=== PATIENT | female | born 1970 | race Caucasian/White ===

== ENCOUNTER → 2016-06-18 | Outpatient (CLI) | payer OTHER ==
--- NOTE | 2016-06-18 17:34 | MR ---
EXAMINATION TYPE: MR lumbar spine wo con DATE OF EXAM: 06/18/2016 9:51 AM COMPARISON: NONE HISTORY: Low back pain TECHNIQUE: Multiplanar, multisequence images of the lumbar spine were acquired. L1-L2: Normal disc appearance without desiccation. No herniation, protrusion or disc bulging. No ca nal stenosis is present. Foramina are patent bilaterally. L2-L3: Normal disc appearance without desiccation. No herniation, protrusion or disc bulging. No ca nal stenosis is present. Foramina are patent bilaterally. L3-L4: Normal disc appearance without desiccation. No herniation, protrusion or disc bulging. No ca nal stenosis is present. Foramina are patent bilaterally. Mild hypertrophic change of the facets. L4-L5: Normal disc appearance without desiccation. No herniation, protrusion or disc bulging. No ca nal stenosis is present. Foramina are patent bilaterally. Mild hypertrophic change of the facets. L5-S1: Severe degenerative disc disease with discogenic marrow changes. Anterior hypertrophic spur fo rmation noted. Central disc small protrusion with mild effacement of thecal sac. There is mild bilate ral foraminal encroachment. Hypertrophic change of the facets. Lumbar segments are intact. No paraspinal masses are identified. Conus medullaris has a normal appe arance. IMPRESSION: Severe degenerative disc disease L5-S1 with small central disc protrusion resulting in mild effacemen t of thecal sac anteriorly. Results in mild canal stenosis. Mild bilateral foraminal encroachment. Multilevel facet arthropathy. Cystic appearing lesion within the right adnexa there is a fluid-filled bowel or potentially be ovari an and could be correlated with ultrasound pelvis as clinically warranted.
== END | disposition home or self-care (01) ==
LOC: RADMRIMAIN 09:13
PROVIDERS: ATTEND Family Medicine
DX: M48.06 Spinal stenosis, lumbar region (principal); M99.73 Connective tissue and disc stenosis of intervertebral foramina of lumbar region; M51.26 Other intervertebral disc displacement, lumbar region; M51.37 Other intervertebral disc degeneration, lumbosacral region; M46.86 Other specified inflammatory spondylopathies, lumbar region
CPT/HCPCS: 72148

== ENCOUNTER → 2021-12-05 | Outpatient (CLI) | payer OTHER ==
[2021-12-05 13:15] VITALS: BP 126/84; PULSE 91; RESP 18; TEMP 98.1
--- NOTE | 2021-12-05 14:23 | P.PAINPG ---
PQRS Measure Charge Sheet Comment: HISTORY OF PRESENT ILLNESS: 51 yr old female as a referral from Patrica REYNA presents today with severe and chronic cervical pain secondary to disc herniations, spinal stenosis, neuroforaminal stenoses and facet arthropathy for evaluation. Pt states her pain level is 8/10 in intensity, intermittent, sharp/tight/achy in character at the base of neck for years w radiation towards back of BL shoulders. Provoked with PT in September 2021 which provoked pain, as well as stress, hyperextension and cold weather. Palliated with chiropractic treatments regularly but stopped in May 2021 due to cost of fuel, medications (Motrin, muscle relaxer), heat, laying supine and rest. PMH: HTN, NIDDM Type II, RA PSH: Denies SH: Negative x 3. FH: Father- NIDDM All: NKDA Meds: See list REVIEW OF ORGAN SYSTEMS: CONSTITUTIONAL: No fevers or chills. No recent weight loss. NEUROLOGICAL: + numbness and tingling along the distal extremities. No seizure disorders or headaches. MUSCULOSKELETAL: + pain PSYCHIATRIC: Denies current depression or suicidal thoughts. Physical Examinations : Constitutional : Cooperative , not in acute distress . Neurologic : Cranial nerve II to XII intact. No focal neurological deficits. Psychiatric : alert & oriented x 3. Matching mood & appropriate affect. Judgment & insight intact. Musculoskeletal : Cervical Spine Motor strength in the deltoid and biceps: Normal right side. Normal Left side Motor strength biceps and the wrist extensors: Normal right side . Normal left side Motor strength in the triceps muscle: Normal right side. Normal left side Deep tendon reflexes: Normal at the biceps. Normal at Brachioradialis. Normal at triceps Vertebral body tenderness to deep palpation over C4, C5 Cervical facet loading test: positive bilaterally Spurling test: positive bilaterally Neck distraction test: positive bilaterally Naman sign: positive bilaterally Lumbar spine Motor strength lower extremities ,thigh and legs 5/5 Right side , 5/5 Left side Deep tendon reflexes : Normal Knee Jerk. Normal Ankle Jerk Vertebral body tenderness over Lumbar facet Loading Test: positive R ight / positive Left Range of motion of the lumbar spine Flexion 30 degrees, extension 10 degrees Straight Leg Raise test: Left/ Right positive at degree Anusha test: positive right / positive left. Severe tenderness over the Sacroiliac joint on the Right / Left sides Gaenslen test: positive bilaterally Seated flexion test: positive bilaterally. Sacral spine : Severe tenderness over the Sacroiliac joint: right side / left side Range of motion: Flexion of the lumbar spine <60 degrees Range of motion: Extension of the lumbar spine <20 degrees Gaenslen's Test positive Sarwat's Test positive Anusha test: positive right side / left side Thigh Thrust Test Sacral Thrust Test Imaging: MRI without contrast of cervical spine from 10/30/21 reviewed Assessment/ Plan : Cervical stenosis, Cervical DDD Recommendation of MARGARET C4-C5. May need a series of injections, up to 3 within a 6 mo period, for optimal pain relief. Risks, benefits of procedure discussed and patient verbalized understanding. Denies aspirin or anti- coagulant use. Admits to a medical history of diabetes. Protocol for discontinuation/ continuation of medications jagdeep procedure discussed. All questions answered. I have spent greater than 30 minutes on patient care today. Dr Lay was available by phone for the evaluation of this patient. The time was used to review the medical records including relevant urine studies and Prescription history (MAPs), review of the available imaging, evaluation and examination of the patient, coordination of care with the medical staff and if applicable r eferring physicians, as well as creation of the medical record Controlled Substance Measures - Controlled Substance Measures Is patient prescribed a controlled substance at discharge?: No
== END ==
LOC: PNWHC3 11:59
PROVIDERS: ATTEND Specialist
DX: M48.02 Spinal stenosis, cervical region (principal); M50.10 Cervical disc disorder with radiculopathy, unspecified cervical region; E11.9 Type 2 diabetes mellitus without complications; I10 Essential (primary) hypertension
CPT/HCPCS: 99211

== ENCOUNTER → 2022-12-24 | Outpatient (CLI) | payer MEDICARE, OTHER ==
[2022-12-24 17:00] LABS: Chol/HDL Ratio 4.03 Ratio
== END | disposition home or self-care (01) ==
LOC: LABWHC1 12:42
PROVIDERS: ATTEND Nurse Practitioner
DX: E78.5 Hyperlipidemia, unspecified (principal)
CPT/HCPCS: 36415; 80061

== ENCOUNTER 2023-02-09 02:07 | Emergency (ER) | payer MEDICARE, OTHER ==
[2023-02-09 02:29] VITALS: RESP 18; TEMP 98.6
[2023-02-09] MEDS ORDERED: TOPICAL SKIN ADHESIVE 1 EACH AMP TOPICAL ONE ×2 (02:53→03:38)
[2023-02-09 02:56] LABS: Basophils % (A) 1 %; Eosinophils # (A) 0.1 k/uL (0-0.7); Eosinophils % (A) 1 %; HCT 41.3 % (34.0-46.0); HGB 13.5 gm/dL (11.4-16.0); Lymphocytes # (A) 2.6 k/uL (1.0-4.8); Lymphocytes % (A) 31 %; MCH 32.4 pg (25.0-35.0); MCHC 32.6 g/dL (31.0-37.0); MCV 99.5 fL (80.0-100.0); Mean Platelet Volume 7.7; Monocytes # (A) 0.6 k/uL (0-1.0); Monocytes % (A) 7 %; Neutrophils # (A) 4.9 k/uL (1.3-7.7); Neutrophils % (A) 58 %; Platelet Count 326 k/uL (150-450); RBC 4.15 m/uL (3.80-5.40); RDW 12.5 % (11.5-15.5); WBC 8.4 k/uL (3.8-10.6)
[2023-02-09] MEDS ORDERED: KETOROLAC 15 MG/ML 1 ML VIAL IVP STA ×2 (02:57→05:33)
--- NOTE | 2023-02-09 03:05 | ED ---
General Adult HPI - General Chief complaint: Syncope Stated complaint: Syncope Time Seen by Provider: 02/09/23 02:09 Source: EMS Mode of arrival: EMS Limitations: no limitations - History of Present Illness Initial comments: This is a 53-year-old female with a past medical history including depression, anxiety, bipolar disorder and rheumatoid arthritis presents emergency department via EMS after syncopal episode. The patient did state that she doubled her dose of prazosin starting today. The patient stated that she got up from bed and went to the bathroom, feeling lightheaded and dizzy and did have a syncopal episode. The patient stated that she woke up on the floor with pain to her face. The patient was noted to have a minor laceration noted to the bridge of the nose as well as the bottom lip. The patient stated that she is no longer lightheaded or dizzy currently and denied of any further pain outside of her face. The patient denied any other acute pain or complaints at this time. The patient did state that she had her prazosin doubled as a treatment of her nightmares and was doubled by her psychologist. - Related Data Home Medications Medication Instructions Recorded Confirmed Atorvastatin [Lipitor] 40 mg PO DAILY 01/07/22 Cetirizine HCl [Zyrtec] 10 mg PO DAILY 01/07/22 DULoxetine HCL [Drizalma Sprinkle] 90 mg PO HS 01/07/22 Dulaglutide [Trulicity] 3 mg SQ TH 01/07/22 Ibuprofen [Motrin] 600 mg PO Q8HR PRN 01/07/22 Insulin Detemir (Levemir) [Levemir] 20 unit SQ HS 01/07/22 LORazepam [Ativan] 0.5 mg PO DAILY 01/07/22 Metoprolol Succinate (ER) [Toprol 25 mg PO DAILY 01/07/22 Xl] OLANZapine [ZyPREXA] 2.5 mg PO HS 01/07/22 Omeprazole 20 mg PO DAILY 01/07/22 Pioglitazone [Actos] 15 mg PO AC-TID 01/07/22 busPIRone HCl [Buspar] 20 mg PO HS 01/07/22 hydroCHLOROthiazide 12.5 mg PO DAILY 01/07/22 lisinopriL 30 mg PO DAILY 01/07/22 tiZANidine [Zanaflex] 2 mg PO HS 01/07/22 Allergies Allergy/AdvReac Type Severity Reaction Status Date / Time Penicillins Allergy Rash/Hives Verified 02/09/23 02:16 Review of Systems ROS Statement: Those systems with pertinent positive or pertinent negative responses have been documented in the HPI. ROS Other: All systems not noted in ROS Statement are negative. Past Medical History Past Medical History: Diabetes Mellitus, GERD/Reflux, Hyperlipidemia, Hypertension History of Any Multi-Drug Resistant Organisms: None Reported Past Surgical History: No Surgical Hx Reported Additional Past Surgical History / Comment(s): D & C Past Anesthesia/Blood Transfusion Reactions: No Reported Reaction Past Psychological History: Anxiety, Bipolar, Depression Past Alcohol Use History: Occasional General Exam Limitations: no limitations General appearance: alert, in no apparent distress Head exam: Present: other (1 cm laceration noted to the bridge of the nose, 1.5 cm laceration to the lower lip) Eye exam: Present: normal appearance, PERRL Pupils: Present: normal accommodation ENT exam: Present: normal exam, normal oropharynx, mucous membranes moist Neck exam: Present: normal inspection, full ROM Respiratory exam: Present: normal lung sounds bilaterally Cardiovascular Exam: Present: regular rate, normal rhythm, normal heart sounds GI/Abdominal exam: Present: soft, normal bowel sounds Extremities exam: Present: normal inspection, full ROM Back exam: Present: normal inspection, full ROM Neurological exam: Present: alert, oriented X3, CN II-XII intact Psychiatric exam: Present: normal affect, normal mood Skin exam: Present: warm, dry Course Vital Signs 02/09/23 02/09/23 02/09/23 02:26 03:52 05:40 Temperature 98.6 F 98.6 F Pulse Rate 92 68 84 Respiratory 18 18 18 Rate Blood Pressure 77/58 97/58 108/74 O2 Sat by Pulse 98 98 98 Oximetry EKG Findings - EKG Comments: EKG Findings:: An EKG was obtained and was interpreted by myself showing a rate of 89, AK interval of 161, QRS duration of 86 and QTC of 421. This EKG showed a normal sinus rhythm with no ST segment elevation or depression noted. Procedures - Laceration Laceration #1 Consent Obtained: verbal consent Indication: laceration Site: face Size (cm): 1 Description: linear Depth: simple, single layer Pre-repair: irrigated extensively Technique: other (Exofin) Patient Tolerated Procedure: well Laceration #2 Consent Obtained: verbal consent Indication: laceration Site: lip Size (cm): 1 Description: linear Depth: simple, single layer Pre-repair: irrigated extensively Technique: other (exofin) Patient Tolerated Procedure: well Medical Decision Making - Medical Decision Making Was pt. sent in by a medical professional or institution (GARCIA Pillai, [employer], urgent care, hospital, or half-way...) When possible be specific @ -No Did you speak to anyone other than the patient for history (EMS, parent, family, police, friend...)? What history was obtained from this source @ -No Did you review nursing and triage notes (agree or disagree)? Why? @ -I reviewed and agree with nursing and triage notes Were old charts reviewed (outside hosp., previous admission, EMS record, old EKG, old radiological studies, urgent care reports/EKG's, half-way records)? Report findings @ -No old charts were reviewed Differential Diagnosis (chest pain, altered mental status, abdominal pain women, abdominal pain men, vaginal bleeding, weakness, fever, dyspnea, syncope, headache, dizziness, GI bleed, back pain, seizure, CVA, palpatations, mental health)? @ -Orthostatic hypotension, facial contusion, facial abrasion, closed head injury EKG interpreted by me (3pts min.). @ -As above X-rays interpreted by me (1pt min.). @ -Chest x-ray was obtained and was interpreted by myself showing no acute process. CT interpreted by me (1pt min.). @ -CT head and CT C-spine was obtained and was interpreted by myself showing no acute hemorrhage, hydrocephalus or mass effect. There is no fracture and the C-spine. CT facial bones without contrast was obtained and was interpreted by myself showing possible nondisplaced right nasal bone fracture versus prominent suture. The patient's have a tenderness on palpation therefore was likely a prominent suture and not a fracture at this time. U/S interpreted by me (1pt. min.). @ -None done What testing was considered but not performed or refused? (CT, X-rays, U/S, labs)? Why? @ -None What meds were considered but not given or refused? Why? @ -None Did you discuss the management of the patient with other professionals (professionals i.e. GARCIA Pillai, [employer] TR[employer] DRIVER, lab, RT, psych nurse, clinical social work therapist, chair springer, teacher, banking officer, showcase trimmer)? Give summary @ -No Was smoking cessation discussed for >3mins.? @ -No Was critical care preformed (if so, how long)? @ -No Were there social determinants of health that impacted care today? How? (Homelessness, low income, unemployed, alcoholism, drug addiction, transportation, low edu. Level, literacy, decrease access to med. care, group home, rehab)? @ -No Was there de-escalation of care discussed even if they declined (Discuss DNR or withdrawal of care, Hospice)? DNR status @ -No What co-morbidities impacted this encounter? (DM, HTN, Smoking, COPD, CAD, Cancer, CVA, ARF, Chemo, Hep., AIDS, mental health diagnosis, sleep apnea, morbid obesity)? @ -Depression, anxiety, nightmares and PTSD Was patient admitted / discharged? Hospital course, mention meds given and route, prescriptions, significant lab abnormalities, going to OR and other pertinent info. @ -Was seen and evaluated emergency department. Physical exam, the patient was resting in bed without any acute distress. Vitals signs were stable on evaluation. Due to the nature the patient's complaints, laboratory workup and i maging was obtained. Laboratory workup was largely within normal limits. Imaging was negative and the patient's minor facial lacerations were repaired per the note above. The patient remained stable and likely had orthostatic hypotension secondary to the patient doubling her dose of prazosin. The patient was advised to not take a double dose again and to follow-up with her psychiatrist who did double her dose. The patient stated that she would not ever doubled the dose again she did not want to pass out or fall. The patient continued to remain stable with normal blood pressures. The patient was stable for discharge home and was discharged home with family. Undiagnosed new problem with uncertain prognosis? @ -No Drug Therapy requiring intensive monitoring for toxicity (Heparin, Nitro, Insulin, Cardizem)? @ -No Were any procedures done? @ -Yes, see above Diagnosis/symptom? @ -Orthostatic hypotension, facial contusion, facial laceration, closed head injury, syncope Acute, or Chronic, or Acute on Chronic? @ -Acute Uncomplicated (without systemic symptoms) or Complicated (systemic symptoms)? @ -Uncomplicated Side effects of treatment? @ -No Exacerbation, Progression, or Severe Exacerbation? @ -No Poses a threat to life or bodily function? How? (Chest pain, USA, NC, pneumonia, PE, COPD, DKA, ARF, appy, cholecystitis, CVA, Diverticulitis, Homicidal, Suicid al, threat to staff... and all critical care pts) @ -No - Lab Data Result diagrams: 02/09/23 02:45 02/09/23 02:45 Lab Results 02/09/23 02/09/23 02/09/23 Range/Units 02:45 02:45 02:45 WBC 8.4 (3.8-10.6) k/uL RBC 4.15 (3.80-5.40) m/uL Hgb 13.5 (11.4-16.0) gm/dL Hct 41.3 (34.0-46.0) % MCV 99.5 (80.0-100.0) fL MCH 32.4 (25.0-35.0) pg MCHC 32.6 (31.0-37.0) g/dL RDW 12.5 (11.5-15.5) % Plt Count 326 (150-450) k/uL MPV 7.7 Neutrophils % 58 % Lymphocytes % 31 % Monocytes % 7 % Eosinophils % 1 % Basophils % 1 % Neutrophils # 4.9 (1.3-7.7) k/uL Lymphocytes # 2.6 (1.0-4.8) k/uL Monocytes # 0.6 (0-1.0) k/uL Eosinophils # 0.1 (0-0.7) k/uL Basophils # 0.0 (0-0.2) k/uL PT 10.3 (9.0-12.0) sec INR 1.0 (<1.2) APTT 20.8 L (22.0-30.0) sec Sodium 132 L (137-145) mmol/L Potassium 4.5 (3.5-5.1) mmol/L Chloride 100 (98-107) mmol/L Carbon Dioxide 15 L (22-30) mmol/L Anion Gap 17 mmol/L BUN 14 (7-17) mg/dL Creatinine 1.02 (0.52-1.04) mg/dL Est GFR (CKD-EPI)AfAm 72 (>60 ml/min/1.73 sqM) Est GFR (CKD-EPI)NonAf 63 (>60 ml/min/1.73 sqM) Glucose 260 H (74-99) mg/dL Calcium 8.9 (8.4-10.2) mg/dL Magnesium 2.2 (1.6-2.3) mg/dL Total Bilirubin 0.4 (0.2-1.3) mg/dL AST 121 H (14-36) U/L ALT 144 H (4-34) U/L Alkaline Phosphatase 79 (38-126) U/L Troponin I (0.000-0.034) ng/mL Total Protein 7.1 (6.3-8.2) g/dL Albumin 4.0 (3.5-5.0) g/dL Lipase 466 H (23-300) U/L Urine Color Urine Appearance (Clear) Urine pH (5.0-8.0) Ur Specific [place] (1.001-1.035) Urine Protein (Negative) Urine Glucose (UA) (Negative) Urine Ketones (Negative) Urine Blood (Negative) Urine Nitrite (Negative) Urine Bilirubin (Negative) Urine Urobilinogen (<2.0) mg/dL Ur Leukocyte Esterase (Negative) 02/09/23 02/09/23 Range/Units 02:45 03:48 WBC (3.8-10.6) k/uL RBC (3.80-5.40) m/uL Hgb (11.4-16.0) gm/dL Hct (34.0-46.0) % MCV (80.0-100.0) fL MCH (25.0-35.0) pg MCHC (31.0-37.0) g/dL RDW (11.5-15.5) % Plt Count (150-450) k/uL MPV Neutrophils % % Lymphocytes % % Monocytes % % Eosinophils % % Basophils % % Neutrophils # (1.3-7.7) k/uL Lymphocytes # (1.0-4.8) k/uL Monocytes # (0-1.0) k/uL Eosinophils # (0-0.7) k/uL Basophils # (0-0.2) k/uL PT (9.0-12.0) sec INR (<1.2) APTT (22.0-30.0) sec Sodium (137-145) mmol/L Potassium (3.5-5.1) mmol/L Chloride (98-107) mmol/L Carbon Dioxide (22-30) mmol/L Anion Gap mmol/L BUN (7-17) mg/dL Creatinine (0.52-1.04) mg/dL Est GFR (CKD-EPI)AfAm (>60 ml/min/1.73 sqM) Est GFR (CKD-EPI)NonAf (>60 ml/min/1.73 sqM) Glucose (74-99) mg/dL Calcium (8.4-10.2) mg/dL Magnesium (1.6-2.3) mg/dL Total Bilirubin (0.2-1.3) mg/dL AST (14-36) U/L ALT (4-34) U/L Alkaline Phosphatase (38-126) U/L Troponin I <0.012 (0.000-0.034) ng/mL Total Protein (6.3-8.2) g/dL Albumin (3.5-5.0) g/dL Lipase (23-300) U/L Urine Color Colorless Urine Appearance Clear (Clear) Urine pH 5.5 (5.0-8.0) Ur Specific [place] 1.005 (1.001-1.035) Urine Protein Negative (Negative) Urine Glucose (UA) 4+ H (Negative) Urine Ketones Negative (Negative) Urine Blood Negative (Negative) Urine Nitrite Negative (Negative) Urine Bilirubin Negative (Negative) Urine Urobilinogen <2.0 (<2.0) mg/dL Ur Leukocyte Esterase Negative (Negative) Disposition Clinical Impression: Syncope, Orthostatic syncope, Facial contusion, Facial laceration Disposition: HOME SELF-CARE Condition: Stable Instructions (If sedation given, give patient instructions): Syncope (DC), Hypotension (DC), Facial Contusion (ED), Facial Laceration (ED) Is patient prescribed a controlled substance at d/c from ED?: No Referrals: None,Stated [REFERRING] - 1-2 days Time of Disposition: 05:15
[2023-02-09 03:10] LABS: Prothrombin Time 10.3 sec (9.0-12.0)
[2023-02-09 03:22] LABS: ALT 144 U/L (4-34); AST 121 U/L (14-36); African American GFR (CKD) 72 (>60 ml/min/1.73 sqM); Alkaline Phosphatase 79 U/L (38-126); Anion Gap 17 mmol/L; Blood Urea Nitrogen 14 mg/dL (7-17); Calcium 8.9 mg/dL (8.4-10.2); Carbon Dioxide 15 mmol/L (22-30); Chloride 100 mmol/L (98-107); Glucose 260 mg/dL (74-99); Lipase 466 U/L (23-300); Magnesium 2.2 mg/dL (1.6-2.3); Non-African American GFR(CKD) 63 (>60 ml/min/1.73 sqM); Potassium 4.5 mmol/L (3.5-5.1); Sodium 132 mmol/L (137-145); Total Bilirubin 0.4 mg/dL (0.2-1.3); Total Protein 7.1 g/dL (6.3-8.2)
[2023-02-09 03:23] LABS: Partial Thromboplastin Time 20.8 sec (22.0-30.0)
[2023-02-09 04:03] LABS: Appearance,Urine Clear (Clear); Bilirubin,Urine Negative (Negative); Blood,Urine Negative (Negative); Color,Urine Colorless; Glucose,Urine (UA) 4+ (Negative); Ketones,Urine Negative (Negative); Leukocyte Esterase,Urine Negative (Negative); Nitrite,Urine Negative (Negative); PH, Urine 5.5 (5.0-8.0); Protein,Urine Negative (Negative); Specific Gravity,Urine 1.005 (1.001-1.035); Urobilinogen,Urine <2.0 mg/dL (<2.0)
--- NOTE | 2023-02-09 04:40 | CT ---
EXAM: CT Head Without Intravenous Contrast CLINICAL HISTORY: ITS.REASON CT Reason: Trauma TECHNIQUE: Axial computed tomography images of the head/brain without intravenous contrast. CTDI is 25.9 mGy and DLP is 755.4 mGy-cm. This CT exam was performed using one or more of the following dose reduction techniques: automated exposure control, adjustment of the mA and/or kV according to patient size, and/or use of iterative reconstruction technique. COMPARISON: No relevant prior studies available. FINDINGS: Brain: No hemorrhage or mass effect. Ventricles: No hydrocephalus. Bones/joints: Unremarkable. Soft tissues: Unremarkable. Sinuses: No air fluid level. Mastoid air cells: Clear. IMPRESSION: No acute hemorrhage, hydrocephalus, or mass effect. EXAM: CT Cervical Spine Without Intravenous Contrast CLINICAL HISTORY: ITS.REASON CT Reason: Trauma TECHNIQUE: Axial computed tomography images of the cervical spine without intravenous contrast. CTDI is 13.8 mGy and DLP is 365.6 mGy-cm. This CT exam was performed using one or more of the following dose reduction techniques: automated exposure control, adjustment of the mA and/or kV according to patient size, and/or use of iterative reconstruction technique. COMPARISON: No relevant prior studies available. FINDINGS: Vertebrae: No acute fracture. Discs/spinal canal/neural foramina: degenerative changes. Severe left C4 and C4-5 facet arthrosis Soft tissues: No prevertebral swelling. IMPRESSION: No acute fracture or subluxation.
--- NOTE | 2023-02-09 05:04 | CT ---
EXAM: CT Head and Maxillofacial Without Intravenous Contrast CLINICAL HISTORY: ITS.REASON CT Reason: Trauma TECHNIQUE: Axial computed tomography images of the head/brain and face without intravenous contrast. CTDI is 39.5 mGy and DLP is 1128 mGy-cm. This CT exam was performed using one or more of the following dose reduction techniques: automated exposure control, adjustment of the mA and/or kV according to patient size, and/or use of iterative reconstruction technique. COMPARISON: No relevant prior studies available. FINDINGS: Bones/joints: Possible nondisplaced right nasal bone fracture versus prominent suture. Remaining facial bones are intact. Soft tissues: Unremarkable. Sinuses: Unremarkable. No acute sinusitis. Mastoid air cells: Unremarkable. No mastoid effusion. Orbits: Unremarkable. IMPRESSION: Possible nondisplaced right nasal bone fracture versus prominent suture. Remaining facial bones are intact.
[2023-02-09 05:44] VITALS: BP 108/74; PULSE 84
--- NOTE | 2023-02-09 07:21 | XR ---
EXAMINATION TYPE: XR chest 2V DATE OF EXAM: 02/09/2023 3:26 AM CLINICAL INDICATION:Female, 53 years old with history of chest pain; [facility] COMPARISON: None TECHNIQUE: XR chest 2V Frontal and lateral views of the chest. FINDINGS: Lungs/Pleura: There is no evidence of pleural effusion, focal consolidation, or pneumothorax. Pulmonary vascularity: Unremarkable. Heart/mediastinum: Cardiomediastinal silhouette is unremarkable. Musculoskeletal: No acute osseous pathology. Other findings: None IMPRESSION: No acute cardiopulmonary disease/process.
== END 2023-02-09 05:42 | disposition home or self-care (01) ==
LOC: EC 02:07
DX: S01.511A Laceration without foreign body of lip, initial encounter (principal); I95.1 Orthostatic hypotension; E11.9 Type 2 diabetes mellitus without complications; E78.5 Hyperlipidemia, unspecified; I10 Essential (primary) hypertension; K21.9 Gastro-esophageal reflux disease without esophagitis; M06.9 Rheumatoid arthritis, unspecified; F31.9 Bipolar disorder, unspecified; F41.9 Anxiety disorder, unspecified; Z88.0 Allergy status to penicillin; Z79.4 Long term (current) use of insulin; Z79.84 Long term (current) use of oral hypoglycemic drugs; Z79.899 Other long term (current) drug therapy; X58.XXXA Exposure to other specified factors, initial encounter
CPT/HCPCS: 36415; 93005; 80053; 83690; 83735; 84484; 85025; 85610; 85730; 81003; 71046; 72125; 70486; 70450; 99285; 96374; 96376; 12011; J1885

== ENCOUNTER → 2023-05-29 | Outpatient (CLI) | payer MEDICARE, OTHER ==
[2023-05-29 18:41] LABS: Amylase 42 U/L (23-121); BUN/Creat Ratio 14.25 Ratio (12.00-20.00); Blood Urea Nitrogen 11.4 mg/dL (9.0-27.0); Chloride 101 mmol/L (96-109); Chol/HDL Ratio 4.51 Ratio; Glucose 123 mg/dL (70-110); LDL Cholesterol,Calculated 182.9 mg/dL (0.0-131.0); Lipase 52 U/L (14-63); Potassium 4.6 mmol/L (3.5-5.5); Sodium 142 mmol/L (135-145)
[2023-05-29 18:42] LABS: ALT 58 U/L (8-44); AST 60 U/L (13-35); Albumin 4.6 g/dL (3.8-4.9); Albumin/Globulin Ratio 1.59 Ratio (1.60-3.17); Alkaline Phosphatase 66 U/L (41-126); Calcium 10.6 mg/dL (8.7-10.3); Carbon Dioxide 24.8 mmol/L (21.6-31.8); Globulin 2.9 g/dL (1.6-3.3); Total Bilirubin 0.5 mg/dL (0.3-1.2); Total Protein 7.5 g/dL (6.2-8.2)
[2023-05-29 19:40] LABS: Hepatitis B Surface Antigen Nonreactive
[2023-05-29 19:41] LABS: Hepatitis A Antibody IgM Nonreactive; Hepatitis B Core IgM Nonreactive; Hepatitis C IgG Antibody Nonreactive
[2023-05-30 04:20] LABS: Microalbumin Creatinine Ratio <10 mg/g Cr (0-30)
== END | disposition home or self-care (01) ==
LOC: LABWHC1 13:14
PROVIDERS: ATTEND Family Medicine
DX: F31.9 Bipolar disorder, unspecified (principal); E11.65 Type 2 diabetes mellitus with hyperglycemia; R79.89 Other specified abnormal findings of blood chemistry
CPT/HCPCS: 36415; 80053; 80061; 80074; 82043; 82140; 82150; 82570; 83036; 83690

== ENCOUNTER → 2023-07-24 | Outpatient (CLI) | payer MEDICARE, OTHER ==
[2023-07-24 16:04] LABS: ALT 69 U/L (8-44); AST 46 U/L (13-35)
[2023-07-24 16:06] LABS: Chol/HDL Ratio 3.41 Ratio; LDL Cholesterol,Calculated 124.2 mg/dL (0.0-131.0)
== END | disposition home or self-care (01) ==
LOC: LABWHC1 11:53
PROVIDERS: ATTEND Internal Medicine Cardiovascular Disease
DX: E78.2 Mixed hyperlipidemia (principal)
CPT/HCPCS: 36415; 80061; 84450; 84460